=== PATIENT | female | born 1955 | race Caucasian/White ===

== ENCOUNTER 2017-04-06 12:25 | Emergency (ER) | payer BC ==
[2017-04-06 12:40] VITALS: BP 180/64
[2017-04-06] MEDS ORDERED: Ondansetron 4 MG/2 ML SDV IVPUSH ONE (13:04)
[2017-04-06] MEDS ORDERED: Sodium Chloride 0.9% 10 ML Syringe FLUSH PRN (13:04)
[2017-04-06] MEDS ORDERED: HYDROmorphone 1 MG/ML Syringe IVPUSH ONE (13:04)
--- NOTE | 2017-04-06 13:24 | EDM.PDOC ---
ED HPI GENERAL MEDICAL PROBLEM - General Chief Complaint: Abdominal Pain Stated Complaint: ABDOMINAL PAIN ON LEFT SIDE Time Seen by Provider: 04/06/17 12:41 Source of Information: Reports: Patient, RN Notes Reviewed - History of Present Illness INITIAL COMMENTS - FREE TEXT/NARRATIVE: 61-year-old female comes in with severe left lower quad abdominal and pelvic discomfort. she had onset of this pain about 4-5 hours ago this past morning. She had no unusual symptoms yesterday or last evening. She does feel voiding urgency but no major dysuria hematuria or other unusual symptoms. She has had nausea and some dry heaves with this. The pain is very colicky and does vary in intensity but at this time very severe. The pain has not been radiating to her back. No diarrhea with this. No fever or chills. She does have history of prior hysterectomy. 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: Reports: Acetaminophen Other 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: 2000mg of tylenol today Left Lower Abdomen Pain Score (Numeric/FACES): 10 - Related Data Allergies Allergy/AdvReac Type Severity Reaction Status Date / Time gabapentin Allergy Dizziness Verified 04/06/17 12:50 iodine Allergy Airway Verified 04/06/17 12:50 Tightness montelukast [From Singulair] Allergy Hives Verified 04/06/17 12:50 NSAIDS (Non-Steroidal Allergy Airway Verified 04/06/17 12:48 Anti-Inflamma Tightness Penicillins Allergy Hives Verified 04/06/17 12:47 Sulfa (Sulfonamide Allergy Hives Verified 04/06/17 12:47 Antibiotics) Home Meds: Home Meds diphenhydrAMINE [Benadryl] 50 mg PO QID 04/06/17 [History] 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: Other OB/BYN History: x 2 - Past Surgical History Female Surgical History: Reports: Hysterectomy Social & Family History - Tobacco Use Smoking Status *Q: Current Every Day Smoker Years of Tobacco use: 40 Packs/Tins Daily: 0.5 Second Hand Smoke Exposure: No - Caffeine Use Caffeine Use: Reports: None - Recreational Drug Use Recreational Drug Use: No ED ROS GENERAL - Review of Systems Review Of Systems: See Below Constitutional: Denies: Fever, Chills, Diaphoresis HEENT: Reports: No Symptoms Respiratory: Denies: Shortness of Breath, Pleuritic Chest Pain Cardiovascular: Denies: Chest Pain GI/Abdominal: Reports: Abdominal Pain, Nausea, Vomiting. Denies: Diarrhea, Hematochezia, Melena : Reports: Flank Pain, Urgency Musculoskeletal: Denies: Back Pain, Joint Pain Skin: Reports: No Symptoms Neurological: Reports: No Symptoms ED EXAM, RENAL/ - Physical Exam Exam: See Below General Appearance: Alert, Severe Distress Eye Exam: Bilateral Eye: PERRL Throat/Mouth: Normal Inspection Head: Atraumatic Neck: Supple, Full Range of Motion Respiratory/Chest: No Respiratory Distress, Lungs Clear, Normal Breath Sounds Cardiovascular: Regular Rate, Rhythm GI/Abdominal: Tender (Mild tenderness left lower quadrant, left pelvis). No: Guarding, Rebound Back Exam: No: CVA Tenderness (L), CVA Tenderness (R) Neurological: Alert, Oriented, No Motor/Sensory Deficits Skin Exam: Warm, Dry, Normal Color, No Rash Course - Vital Signs Last Recorded V/S: Last Vital Signs Temp 97.5 F 04/06/17 12:38 Pulse 71 04/06/17 12:38 Resp 20 04/06/17 12:38 BP 180/64 H 04/06/17 12:38 Pulse Ox 100 04/06/17 12:38 - Orders/Labs/Meds Orders: Active Orders 24 hr Category Date Time Status Peripheral IV Care [RC] . DIRECTED Care 04/06/17 13:04 Active Sodium Chloride 0.9% [Normal Saline] 1,000 ml Med 04/06/17 13:30 Active IV ONETIME Sodium Chloride 0.9% [Saline Flush] Med 04/06/17 13:04 Active 10 ml FLUSH ASDIRECTED PRN Peripheral IV Insertion Adult [OM.PC] Stat Oth 04/06/17 13:04 Ordered Medication Orders Sodium Chloride (Normal Saline) 1,000 mls @ 999 mls/hr IV ONETIME ALAN Last Admin: 04/06/17 13:41 Dose: 999 mls/hr Sodium Chloride (Saline Flush) 10 ml FLUSH ASDIRECTED PRN PRN Reason: Keep Vein Open Last Admin: 04/06/17 13:38 Dose: 10 ml Labs: Laboratory Tests 04/06/17 04/06/17 04/06/17 Range/Units 13:00 13:08 13:08 WBC 10.94 H (3.98-10.04) K/mm3 RBC 5.48 H (3.98-5.22) M/mm3 Hgb 15.0 (11.2-15.7) gm/L Hct 44.5 (34.1-44.9) % MCV 81.2 (79.4-94.8) fl MCH 27.4 (25.6-32.2) pg MCHC 33.7 (32.2-35.5) g/dl RDW Std Deviation 39.5 (36.4-46.3) fL Plt Count 261 (182-369) K/mm3 MPV 8.7 L (9.4-12.3) fl Neut % (Auto) 88.6 H (34.0-71.1) % Lymph % (Auto) 8.3 L (19.3-51.7) % [place] % (Auto) 2.4 L (4.7-12.5) % Eos % (Auto) 0.5 L (0.7-5.8) Baso % (Auto) 0.0 L (0.1-1.2) % Neut # (Auto) 9.69 H (1.56-6.13) K/mm3 Lymph # (Auto) 0.91 L (1.18-3.74) K/mm3 [place] # (Auto) 0.26 (0.24-0.36) K/mm3 Eos # (Auto) 0.06 (0.04-0.36) K/mm3 Baso # (Auto) 0.00 L (0.01-0.08) K/mm3 Manual Slide Review Normal smear Sodium (136-145) mEq/L Potassium (3.5-5.1) mEq/L Chloride (98-107) mEq/L Carbon Dioxide (21-32) mEq/L Anion Gap (5-15) BUN (7-18) mg/dL Creatinine (0.55-1.02) mg/dL Est Cr Clr Drug Dosing mL/min Estimated GFR (MDRD) (>60) mL/min BUN/Creatinine Ratio (14-18) Glucose (80-115) mg/dL Calcium (8.5-10.1) mg/dL Total Bilirubin (0.2-1.0) mg/dL AST (15-37) U/L ALT (14-59) U/L Alkaline Phosphatase (46-116) U/L C-Reactive Protein 1.5 H* (<1.0) mg/dL Total Protein (6.4-8.2) g/dl Albumin (3.4-5.0) g/dl Globulin gm/dL Albumin/Globulin Ratio (1-2) Urine Color Yellow (Yellow) Urine Appearance Clear (Clear) Urine pH 6.0 (5.0-8.0) Ur Specific [place] > or = 1.030 (1.005-1.030) Urine Protein 1+ H (Negative) Urine Glucose (UA) Negative (Negative) Urine Ketones Negative (Negative) Urine Occult Blood 2+ H (Negative) Urine Nitrite Negative (Negative) Urine Bilirubin Negative (Negative) Urine Urobilinogen 0.2 (0.2-1.0) Ur Leukocyte Esterase Negative (Negative) Urine RBC 0-5 (0-5) /hpf Urine WBC 0-5 (0-5) /hpf Ur Epithelial Cells 0-5 (0-5) /hpf Urine Bacteria Not seen (FEW) /hpf Urine Mucus Not seen (FEW) /hpf 04/06/17 Range/Units 13:08 WBC (3.98-10.04) K/mm3 RBC (3.98-5.22) M/mm3 Hgb (11.2-15.7) gm/L Hct (34.1-44.9) % MCV (79.4-94.8) fl MCH (25.6-32.2) pg MCHC (32.2-35.5) g/dl RDW Std Deviation (36.4-46.3) fL Plt Count (182-369) K/mm3 MPV (9.4-12.3) fl Neut % (Auto) (34.0-71.1) % Lymph % (Auto) (19.3-51.7) % [place] % (Auto) (4.7-12.5) % Eos % (Auto) (0.7-5.8) Baso % (Auto) (0.1-1.2) % Neut # (Auto) (1.56-6.13) K/mm3 Lymph # (Auto) (1.18-3.74) K/mm3 [place] # (Auto) (0.24-0.36) K/mm3 Eos # (Auto) (0.04-0.36) K/mm3 Baso # (Auto) (0.01-0.08) K/mm3 Manual Slide Review Sodium 139 (136-145) mEq/L Potassium 4.3 (3.5-5.1) mEq/L Chloride 104 (98-107) mEq/L Carbon Dioxide 24 (21-32) mEq/L Anion Gap 15.3 H (5-15) BUN 12 (7-18) mg/dL Creatinine 0.7 (0.55-1.02) mg/dL Est Cr Clr Drug Dosing 68.05 mL/min Estimated GFR (MDRD) > 60 (>60) mL/min BUN/Creatinine Ratio 17.1 (14-18) Glucose 138 H (80-115) mg/dL Calcium 9.4 (8.5-10.1) mg/dL Total Bilirubin 0.7 (0.2-1.0) mg/dL AST 13 L (15-37) U/L ALT 29 (14-59) U/L Alkaline Phosphatase 102 (46-116) U/L C-Reactive Protein (<1.0) mg/dL Total Protein 7.6 (6.4-8.2) g/dl Albumin 4.4 (3.4-5.0) g/dl Globulin 3.2 gm/dL Albumin/Globulin Ratio 1.4 (1-2) Urine Color (Yellow) Urine Appearance (Clear) Urine pH (5.0-8.0) Ur Specific [place] (1.005-1.030) Urine Protein (Negative) Urine Glucose (UA) (Negative) Urine Ketones (Negative) Urine Occult Blood (Negative) Urine Nitrite (Negative) Urine Bilirubin (Negative) Urine Urobilinogen (0.2-1.0) Ur Leukocyte Esterase (Negative) Urine RBC (0-5) /hpf Urine WBC (0-5) /hpf Ur Epithelial Cells (0-5) /hpf Urine Bacteria (FEW) /hpf Urine Mucus (FEW) /hpf Meds: Medications Generic Name Dose Route Start Last Admin Trade Name Freq PRN Reason Stop Dose Admin Sodium Chloride 1,000 mls @ 999 mls/hr 04/06/17 13:30 04/06/17 13:41 Normal Saline IV 999 mls/hr ONETIME ALAN Administration Sodium Chloride 10 ml 04/06/17 13:04 04/06/17 13:38 Saline Flush FLUSH 10 ml ASDIRECTED PRN Administration Keep Vein Open Discontinued Medications Generic Name Dose Route Start Last Admin Trade Name Yaritza PRN Reason Stop Dose Admin Hydromorphone HCl 1 mg 04/06/17 13:04 04/06/17 13:38 Dilaudid IVPUSH 04/06/17 13:05 1 mg ONETIME ONE Administration Ondansetron HCl 4 mg 04/06/17 13:04 04/06/17 13:35 Zofran IVPUSH 04/06/17 13:05 4 mg ONETIME ONE Administration - Re-Assessments/Exams Free Text/Narrative Re-Assessment/Exam: 04/06/17 15:21. Patient does have a 1.5 mm stone distal left ureter, see radiology report for details. She had good relief of discomfort after 0.5 mg Dilaudid IV. The stone is small enough it is expected that she should be able to pass that without difficulty. Discharge instructions as documented Departure - Departure Time of Disposition: 15:22 Disposition: Home, Self-Care 01 Condition: fair Clinical Impression: Kidney stone on left side - Discharge Information Forms: ED Department Discharge Additional Instructions: You have been given sedative medication will here in the ED so do not drive the remainder of today, strain urine and to watch for stone. Tylenol or ibuprofen for mild to moderate discomfort or hydrocodone if needed for more severe pain. Do not drive or work when taking hydrocodone. Followup clinic in 3-4 days if you have not passed the stone within 2-3 days as expected. Return to ED as needed - My Orders Last 24 Hours: My Active Orders 04/06/17 13:04 Peripheral IV Care [RC] . DIRECTED Sodium Chloride 0.9% [Saline Flush] 10 ml FLUSH ASDIRECTED PRN Peripheral IV Insertion Adult [OM.PC] Stat 04/06/17 13:30 Sodium Chloride 0.9% [Normal Saline] 1,000 ml IV ONETIME - Assessment/Plan Last 24 Hours: My Active Orders 04/06/17 13:04 Peripheral IV Care [RC] . DIRECTED Sodium Chloride 0.9% [Saline Flush] 10 ml FLUSH ASDIRECTED PRN Peripheral IV Insertion Adult [OM.PC] Stat 04/06/17 13:30 Sodium Chloride 0.9% [Normal Saline] 1,000 ml IV ONETIME
[2017-04-06] MEDS ORDERED: Sodium Chloride 0.9% 1,000 ML IV SCH (13:30)
--- NOTE | 2017-04-06 15:09 | CT ---
CT abdomen and pelvis Technique: Multiple axial sections were obtained from above the dome of the diaphragm inferiorly through the pubic symphysis. Intravenous and oral contrast not utilized. Study was performed as a ureteral stone protocol. Findings: Minimal nonobstructing stone is noted within the right kidney measuring approximately 1-1.5 mm. Left kidney shows a slightly prominent proximal left ureter. There is a minimal 1.5 mm calcification which may be vascular although this could be within the ureter as a ureteral dilatation does not continue past this area with normal-sized distal ureter be in seen. No additional ureteral calcifications are seen. Visualized lung bases shows nothing acute. Noncontrast appearance of the liver appears within normal limits. Small hiatal hernia is seen. Spleen appears normal. Adrenal glands show no nodule. Pancreas has a normal noncontrast appearance. Several small areas of increased density are seen within the gallbladder most likely representing minimal calcified gallstones. Aorta shows atherosclerotic change without aneurysmal dilatation. No retroperitoneal adenopathy or mesenteric abnormalities are seen. No pelvic mass or adenopathy is seen. No bowel dilatation is seen. No free fluid is seen. Bone window settings were reviewed which shows degenerative change at L4-L5 within the apophyseal joints causing mild spondylolisthesis. Disc space narrowing is noted vacuum phenomena at L4-L5. 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 Less prominent degenerative change also seen within other portions of the spine. Impression: 1. Slightly prominent proximal left ureter. Within the pelvis there is changing of the left ureteral caliber to normal. Minimal calcification is seen in this area which could be vascular although given the change in ureteral size this calcification may represent a minimal 1.5 mm ureteral stone. Please correlate if patient has symptoms of left ureteral obstruction. 2. Small 1-1.5 mm nonobstructing stone within the right kidney. 3. Other incidental findings as described above. Diagnostic code #3
== END 2017-04-06 15:30 | disposition home or self-care (01) ==
LOC: JD.ED 12:25
DX: N20.2 Calculus of kidney with calculus of ureter (principal); F17.210 Nicotine dependence, cigarettes, uncomplicated; Z88.0 Allergy status to penicillin; Z88.2 Allergy status to sulfonamides; Z88.8 Allergy status to other drugs, medicaments and biological substances; Z90.710 Acquired absence of both cervix and uterus
CPT/HCPCS: 36415; 74176; 80053; 81001; 85025; 86140; 96361; 96374; 96375; 99284; J1170; J2405; J7040; J7050

== ENCOUNTER 2017-09-28 00:18 | Emergency (ER) | payer BC ==
[2017-09-28] MEDS ORDERED: HYDROmorphone 1 MG/ML Syringe IVPUSH ONE (00:33)
[2017-09-28] MEDS ORDERED: Ondansetron 4 MG/2 ML SDV IVPUSH ONE ×2 (00:34→02:34)
[2017-09-28] MEDS ORDERED: Ketorolac 30 MG/ML SDV IVPUSH ONE (00:34)
[2017-09-28] MEDS ORDERED: Sodium Chloride 0.9% 1,000 ML IV SCH (00:45)
--- NOTE | 2017-09-28 00:51 | EDM.PDOC ---
ED HPI GENERAL MEDICAL PROBLEM - General Chief Complaint: Flank Pain Stated Complaint: POSS KIDNEY STONE Time Seen by Provider: 09/28/17 00:20 Source of Information: Reports: Patient History Limitations: Reports: No Limitations - History of Present Illness INITIAL COMMENTS - FREE TEXT/NARRATIVE: This is a 61-year-old female. Onset tonight around 10 PM with right lower quadrant abdominal pain radiating into her groin and down her right thigh and she's had 3 kidney stones in the past and that is what she believes she has now. She has been having some nausea and gagging but no vomiting. She has not noted any blood in her urine this evening. She's had no fever no chills no other acute symptoms. When I walk into the room she standing leaning over arms on the bed and sweating. Right Flank Pain Score (Numeric/FACES): 10 - Related Data Allergies Allergy/AdvReac Type Severity Reaction Status Date / Time gabapentin Allergy Dizziness Verified 09/28/17 00:27 iodine Allergy Airway Verified 09/28/17 00:27 Tightness montelukast [From Singulair] Allergy Hives Verified 09/28/17 00:27 NSAIDS (Non-Steroidal Allergy Airway Verified 09/28/17 00:27 Anti-Inflamma Tightness Penicillins Allergy Hives Verified 09/28/17 00:27 Sulfa (Sulfonamide Allergy Hives Verified 09/28/17 00:27 Antibiotics) Home Meds: Home Meds Acetaminophen/oxyCODONE [Percocet 325-5 MG] 1 tab PO Q4H PRN #15 tablet [Rx] Ondansetron [Zofran] 4 mg PO Q6H PRN #12 tab 09/28/17 [Rx] Past Medical History 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: Other OB/BYN History: x 2 Endocrine/Metabolic History: Reports: Diabetes, Type II - Past Surgical History Female Surgical History: Reports: Hysterectomy Social & Family History - Tobacco Use Smoking Status *Q: Current Every Day Smoker Years of Tobacco use: 40 Packs/Tins Daily: 0.5 Second Hand Smoke Exposure: No - Caffeine Use Caffeine Use: Reports: Coffee - Recreational Drug Use Recreational Drug Use: No ED ROS GENERAL - Review of Systems Review Of Systems: See Below Constitutional: Denies: Fever, Chills HEENT: Reports: No Symptoms Respiratory: Reports: No Symptoms Cardiovascular: Reports: No Symptoms Endocrine: Reports: No Symptoms GI/Abdominal: Reports: Abdominal Pain, Nausea. Denies: Vomiting : Reports: Flank Pain Musculoskeletal: Reports: No Symptoms Skin: Reports: No Symptoms Neurological: Reports: No Symptoms Psychiatric: Reports: No Symptoms Hematologic/Lymphatic: Reports: No Symptoms ED EXAM, RENAL/ - Physical Exam Exam: See Below Exam Limited By: No Limitations General Appearance: Alert, WD/WN, Moderate Distress Eye Exam: Bilateral Eye: Normal Inspection Ears: Normal External Exam Nose: Normal Inspection Throat/Mouth: Normal Inspection, Normal Lips, Normal Voice, No Airway Compromise Head: Normocephalic Neck: Supple Respiratory/Chest: No Respiratory Distress, Lungs Clear, Normal Breath Sounds Cardiovascular: Regular Rate, Rhythm, No Murmur GI/Abdominal: Soft, Other (Generalized right flank soreness and to the right lower quadrant but no masses no rebound noted, no rigidity) Back Exam: Full Range of Motion Extremities: Normal Inspection, Normal Range of Motion, No Pedal Edema Neurological: Alert, Oriented Psychiatric: Anxious Skin Exam: Warm, Diaphoretic Course - Vital Signs Last Recorded V/S: Last Vital Signs Temp 97.2 F 09/28/17 00:24 Pulse 76 09/28/17 00:24 Resp 16 09/28/17 00:24 BP 177/64 H 09/28/17 01:09 Pulse Ox 96 09/28/17 00:24 - Orders/Labs/Meds Orders: Active Orders 24 hr Category Date Time Status Abdomen Pelvis wo Cont [CT] Stat Exams 09/28/17 01:07 Taken Sodium Chloride 0.9% [Normal Saline] 1,000 ml Med 09/28/17 00:45 Active IV ASDIRECTED Medication Orders Sodium Chloride (Normal Saline) 1,000 mls @ 1,000 mls/hr IV ASDIRECTED ALAN Last Admin: 09/28/17 00:50 Dose: 1,000 mls/hr Labs: Laboratory Tests 09/28/17 09/28/17 09/28/17 Range/Units 00:40 00:40 01:58 WBC 11.36 H (3.98-10.04) K/mm3 RBC 5.55 H (3.98-5.22) M/mm3 Hgb 15.2 (11.2-15.7) gm/L Hct 45.2 H (34.1-44.9) % MCV 81.4 (79.4-94.8) fl MCH 27.4 (25.6-32.2) pg MCHC 33.6 (32.2-35.5) g/dl RDW Std Deviation 40.2 (36.4-46.3) fL Plt Count 254 (182-369) K/mm3 MPV 8.8 L (9.4-12.3) fl Neut % (Auto) 77.8 H (34.0-71.1) % Lymph % (Auto) 13.6 L (19.3-51.7) % [place] % (Auto) 5.2 (4.7-12.5) % Eos % (Auto) 3.0 (0.7-5.8) Baso % (Auto) 0.1 (0.1-1.2) % Neut # (Auto) 8.84 H (1.56-6.13) K/mm3 Lymph # (Auto) 1.55 (1.18-3.74) K/mm3 [place] # (Auto) 0.59 H (0.24-0.36) K/mm3 Eos # (Auto) 0.34 (0.04-0.36) K/mm3 Baso # (Auto) 0.01 (0.01-0.08) K/mm3 Sodium 142 (136-145) mEq/L Potassium 4.1 (3.5-5.1) mEq/L Chloride 104 (98-107) mEq/L Carbon Dioxide 24 (21-32) mEq/L Anion Gap 18.1 H (5-15) BUN 15 (7-18) mg/dL Creatinine 0.8 (0.55-1.02) mg/dL Est Cr Clr Drug Dosing 59.54 mL/min Estimated GFR (MDRD) > 60 (>60) mL/min BUN/Creatinine Ratio 18.8 H (14-18) Glucose 191 H (80-115) mg/dL Calcium 9.3 (8.5-10.1) mg/dL Total Bilirubin 0.4 (0.2-1.0) mg/dL AST 18 (15-37) U/L ALT 77 H (14-59) U/L Alkaline Phosphatase 131 H (46-116) U/L Total Protein 7.7 (6.4-8.2) g/dl Albumin 4.4 (3.4-5.0) g/dl Globulin 3.3 gm/dL Albumin/Globulin Ratio 1.3 (1-2) Urine Color Yellow (Yellow) Urine Appearance Clear (Clear) Urine pH 6.5 (5.0-8.0) Ur Specific [place] > or = 1.030 (1.005-1.030) Urine Protein 1+ H (Negative) Urine Glucose (UA) Negative (Negative) Urine Ketones Negative (Negative) Urine Occult Blood 3+ H (Negative) Urine Nitrite Negative (Negative) Urine Bilirubin Negative (Negative) Urine Urobilinogen 0.2 (0.2-1.0) Ur Leukocyte Esterase Trace H (Negative) Urine RBC 20-30 H (0-5) /hpf Urine WBC 5-10 H (0-5) /hpf Ur Epithelial Cells Not Reportable Ur Squamous Epith Cells 0-5 (0-5) /hpf Urine Bacteria Not seen (FEW) /hpf Urine Mucus Not seen (FEW) /hpf Meds: Medications Generic Name Dose Route Start Last Admin Trade Name Freq PRN Reason Stop Dose Admin Sodium Chloride 1,000 mls @ 1,000 mls/hr 09/28/17 00:45 09/28/17 00:50 Normal Saline IV 1,000 mls/hr ASDIRECTED ALAN Administration Discontinued Medications Generic Name Dose Route Start Last Admin Trade Name Freq PRN Reason Stop Dose Admin Hydromorphone HCl 0.5 mg 09/28/17 00:33 09/28/17 00:51 Dilaudid IVPUSH 09/28/17 00:34 0.5 mg ONETIME ONE Administration Hydromorphone HCl 0.5 mg 09/28/17 01:01 09/28/17 01:07 Dilaudid IVPUSH 09/28/17 01:02 0.5 mg ONETIME ONE Administration Hydromorphone HCl 0.5 mg 09/28/17 02:02 09/28/17 02:12 Dilaudid IVPUSH 09/28/17 02:03 0.5 mg ONETIME ONE Administration Hydromorphone HCl 0.5 mg 09/28/17 02:34 09/28/17 02:44 Dilaudid IVPUSH 09/28/17 02:35 0.5 mg ONETIME ONE Administration Sodium Chloride 1,000 mls @ 999 mls/hr 09/28/17 02:07 09/28/17 02:12 Normal Saline IV 09/28/17 03:07 999 mls/hr ONETIME ONE Administration Ondansetron HCl 4 mg 09/28/17 00:34 09/28/17 00:51 Zofran IVPUSH 09/28/17 00:35 4 mg ONETIME ONE Administration Ondansetron HCl 4 mg 09/28/17 02:34 09/28/17 02:44 Zofran IVPUSH 09/28/17 02:35 4 mg ONETIME ONE Administration - Radiology Interpretation Free Text/Narrative:: CT of the abdomen shows a 2 mm stone in the distal right ureter with mild right- sided hydronephrosis. Incidental finding is gallstones otherwise everything appears to be normal - Re-Assessments/Exams Free Text/Narrative Re-Assessment/Exam: 09/28/17 02:35 I spoke to the patient regarding her CT scan results. She is still having some mild pain and nausea we will continue another liter of fluids with pain medications to ease her up and hopefully be able to get her home. 09/28/17 03:19 The patient is doing better. However she has episodes of cramping in that right lower quadrant. I'm going to give her one final dose of pain medication and let her go home with prescription for something for pain and nausea. She is to follow-up with her doctor this week for recheck especially if she has not passed the stone. Departure - Departure Time of Disposition: 03:20 Disposition: Home, Self-Care 01 Condition: Fair Clinical Impression: Nephrolithiasis, Ureteral stone with hydronephrosis, Renal colic on right side - Discharge Information Prescriptions: Acetaminophen/oxyCODONE [Percocet 325-5 MG] 1 tab PO Q4H PRN #15 tablet PRN Reason: Pain Ondansetron [Zofran] 4 mg PO Q6H PRN #12 tab PRN Reason: Nausea Instructions: Kidney Stones, [id number] Referrals: PCP,Not In Area [Primary Care Provider] - Forms: ED Department Discharge Additional Instructions: Continue to drink lots of fluids, strain your urine every time you urinate a few see a dark little spot on the screen and you rub it with her finger and it feels like a pebble that is your stone, take the medication for pain and nausea as needed, avoid any excessive activity or traveling until you pass the stone, follow-up with your family doctor or doctor of choice this week especially if you do not pass the stone, return to the ER if needed - My Orders Last 24 Hours: My Active Orders 09/28/17 00:45 Sodium Chloride 0.9% [Normal Saline] 1,000 ml IV ASDIRECTED 09/28/17 01:07 Abdomen Pelvis wo Cont [CT] Stat - Assessment/Plan Last 24 Hours: My Active Orders 09/28/17 00:45 Sodium Chloride 0.9% [Normal Saline] 1,000 ml IV ASDIRECTED 09/28/17 01:07 Abdomen Pelvis wo Cont [CT] Stat
[2017-09-28] MEDS ORDERED: HYDROmorphone 0.5 MG/0.5 ML Syringe IVPUSH ONE ×4 (01:01→03:24)
[2017-09-28 01:10] VITALS: BP 177/64
[2017-09-28] MEDS ORDERED: Sodium Chloride 0.9% 1,000 ML IV ONE (02:07)
--- NOTE | 2017-09-30 07:39 | CT ---
CT abdomen and pelvis Technique: Multiple axial sections were obtained from above the dome of the diaphragm inferiorly through the pubic symphysis. Intravenous and oral contrast was not utilized. Study has been performed as a ureteral stone protocol. Comparison: Previous noncontrast CT study performed as a ureteral stone protocol dated 04/06/17. Findings: Small obstructing stone is identified within the distal right ureter close to the UVJ. This stone measures approximately 2.3 mm. This obstruction causes inflammatory change around the more proximal right ureter. Several nonobstructing small calculi are seen within the right kidney. Right ureter and right pelvicalyceal system are dilated. Small portion of the visualized lung bases show nothing acute. Incidental note of minimal peripheral fibrosis within the right middle lobe. Liver shows no focal parenchymal abnormality. Several small calcifications within the gallbladder are seen compatible with gallstones. Spleen appears within normal limits. Adrenal glands show no nodule. Pancreas appears within normal limits. Small hiatal hernia is seen. Diffuse atherosclerotic calcification is noted within the aorta. No retroperitoneal adenopathy is seen. Several mesenteric lymph nodes are noted within the right lower abdomen which are believed to be incidental. Appendix is not definitely seen. No pelvic abnormality is appreciated. Bone window settings were reviewed which show scattered degenerative change within the spine. Most prominent finding is degenerative apophyseal change causing spondylolisthesis at L5-S1. Impression: 1. Inflammatory change around portions of the proximal right ureter as well as right sided hydronephrosis. These findings are caused by an obstructing 2.3 mm calculus within the distal right ureter and close to the UVJ. 2. Several nonobstructing small calculi within the right kidney are seen. 3. Other findings which are felt to be incidental as described above. Diagnostic code #3 I agree with preliminary report issued by [facility] ([facility] report finalized on 09/28/17, 3:10 AM Central Time)
== END 2017-09-28 03:40 | disposition home or self-care (01) ==
LOC: JD.ED 00:18
DX: N13.2 Hydronephrosis with renal and ureteral calculous obstruction (principal); E11.9 Type 2 diabetes mellitus without complications; F17.210 Nicotine dependence, cigarettes, uncomplicated; Z88.0 Allergy status to penicillin; Z88.8 Allergy status to other drugs, medicaments and biological substances; Z88.2 Allergy status to sulfonamides
CPT/HCPCS: 36415; 74176; 80053; 81001; 85025; 96361; 96374; 96375; 96376; 99284; J1170; J2405; J7040

== ENCOUNTER 2018-03-18 19:36 | Emergency (ER) | payer BC ==
[2018-03-18 19:44] VITALS: BP 179/133
--- NOTE | 2018-03-18 20:07 | EDM.PDOC ---
ED HPI GENERAL MEDICAL PROBLEM - General Chief Complaint: Abdominal Pain Stated Complaint: BACK AND STOMACH PAIN Time Seen by Provider: 03/18/18 19:51 Source of Information: Reports: Patient History Limitations: Reports: No Limitations - History of Present Illness INITIAL COMMENTS - FREE TEXT/NARRATIVE: The patient presents with left flank pain and urinary symptoms. She says this all started about 3pm today. She had kidney stones in the past but she says this feels a little different. It is a little higher and more to the front. The pain will also radiate to the front. She has nausea but no vomiting. She has no fever or chills. She denies chest pain and she is not short of breath. She does have dysuria and frequency of urination. She did not notice any blood. The pain comes and goes and it is better now. Onset: Sudden Duration: Hour(s): (3pm) Location: Reports: Back (Left flank) Quality: Reports: Sharp Severity: Moderate Improves with: Reports: None Worsens with: Reports: None Associated Symptoms: Reports: Nausea/Vomiting. Denies: Chest Pain, Cough, Fever /Chills, Headaches, Shortness of Breath Left Abdomen Pain Score (Numeric/FACES): 6 - Related Data Allergies Allergy/AdvReac Type Severity Reaction Status Date / Time gabapentin Allergy Dizziness Verified 09/28/17 00:27 ibuprofen Allergy Hives Verified 03/18/18 19:40 iodine Allergy Airway Verified 09/28/17 00:27 Tightness montelukast [From Singulair] Allergy Hives Verified 09/28/17 00:27 naproxen [From Aleve] Allergy Hives Verified 03/18/18 19:40 NSAIDS (Non-Steroidal Allergy Airway Verified 09/28/17 00:27 Anti-Inflamma Tightness Penicillins Allergy Hives Verified 09/28/17 00:27 Sulfa (Sulfonamide Allergy Hives Verified 09/28/17 00:27 Antibiotics) Home Meds: Home Meds Hydrocodone/Acetaminophen [Hydrocodon-Acetaminophen 5-325] 1 - 2 each PO Q6HR PRN #20 tablet 03/18/18 [Rx] Tamsulosin HCl [Flomax] 0.4 mg PO DAILY #7 cap.er.24h 03/18/18 [Rx] Past Medical History HEENT History: Reports: Cataract Cardiovascular History: Reports: Hypertension Genitourinary History: Reports: Renal Calculus 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 Endocrine/Metabolic History: Reports: Diabetes, Type II - Past Surgical History Female Surgical History: Reports: Hysterectomy Social & Family History - Tobacco Use Smoking Status *Q: Current Every Day Smoker Years of Tobacco use: 30 Packs/Tins Daily: 0.2 Second Hand Smoke Exposure: No - Caffeine Use Caffeine Use: Reports: Coffee - Recreational Drug Use Recreational Drug Use: No ED ROS GENERAL - Review of Systems Review Of Systems: See Below Constitutional: Reports: No Symptoms HEENT: Reports: No Symptoms Respiratory: Reports: No Symptoms Cardiovascular: Reports: No Symptoms Endocrine: Reports: No Symptoms GI/Abdominal: Reports: Abdominal Pain, Nausea. Denies: Vomiting : Reports: Dysuria, Flank Pain (Left), Frequency Musculoskeletal: Reports: No Symptoms Skin: Reports: No Symptoms ED EXAM, RENAL/ - Physical Exam Exam: See Below Exam Limited By: No Limitations General Appearance: Alert, No Apparent Distress Ears: Normal External Exam Nose: Normal Inspection Throat/Mouth: Normal Inspection Head: Atraumatic, Normocephalic Neck: Normal Inspection Respiratory/Chest: No Respiratory Distress, Lungs Clear, Normal Breath Sounds Cardiovascular: Regular Rate, Rhythm, No Edema, No Murmur GI/Abdominal: Soft, Non-Tender, No Organomegaly, No Mass Back Exam: Normal Inspection, Other (No rash noted) Extremities: Normal Inspection Course - Vital Signs Last Recorded V/S: Last Vital Signs Temp 98.1 F 03/18/18 19:41 Pulse 86 03/18/18 19:41 Resp 18 03/18/18 19:41 BP 179/133 H 03/18/18 19:41 Pulse Ox 98 03/18/18 19:41 - Orders/Labs/Meds Orders: Active Orders 24 hr Category Date Time Status Peripheral IV Care [RC] . DIRECTED Care 03/18/18 20:01 Active Abdomen Pelvis wo Cont [CT] Stat Exams 03/18/18 20:00 Taken UA W/MICROSCOPIC [URIN] Stat Lab 03/18/18 20:15 Ordered Sodium Chloride 0.9% [Saline Flush] Med 03/18/18 20:00 Active 10 ml FLUSH ASDIRECTED PRN Peripheral IV Insertion Adult [OM.PC] Stat Oth 03/18/18 20:00 Ordered Medication Orders Sodium Chloride (Saline Flush) 10 ml FLUSH ASDIRECTED PRN PRN Reason: Keep Vein Open Last Admin: 03/18/18 20:17 Dose: 10 ml Admin: 03/18/18 20:10 Dose: 10 ml Labs: Laboratory Tests 03/18/18 03/18/18 03/18/18 Range/Units 19:46 19:46 20:15 WBC 8.21 (3.98-10.04) K/mm3 RBC 5.32 H (3.98-5.22) M/mm3 Hgb 14.9 (11.2-15.7) gm/L Hct 44.0 (34.1-44.9) % MCV 82.7 (79.4-94.8) fl MCH 28.0 (25.6-32.2) pg MCHC 33.9 (32.2-35.5) g/dl RDW Std Deviation 39.7 (36.4-46.3) fL Plt Count 248 (182-369) K/mm3 MPV 8.6 L (9.4-12.3) fl Neut % (Auto) 72.1 H (34.0-71.1) % Lymph % (Auto) 18.9 L (19.3-51.7) % [place] % (Auto) 5.8 (4.7-12.5) % Eos % (Auto) 2.9 (0.7-5.8) Baso % (Auto) 0.1 (0.1-1.2) % Neut # (Auto) 5.91 (1.56-6.13) K/mm3 Lymph # (Auto) 1.55 (1.18-3.74) K/mm3 [place] # (Auto) 0.48 H (0.24-0.36) K/mm3 Eos # (Auto) 0.24 (0.04-0.36) K/mm3 Baso # (Auto) 0.01 (0.01-0.08) K/mm3 Sodium 138 (136-145) mEq/L Potassium 3.8 (3.5-5.1) mEq/L Chloride 104 (98-107) mEq/L Carbon Dioxide 27 (21-32) mEq/L Anion Gap 10.8 (5-15) BUN 11 (7-18) mg/dL Creatinine 0.7 (0.55-1.02) mg/dL Est Cr Clr Drug Dosing 67.16 mL/min Estimated GFR (MDRD) > 60 (>60) mL/min BUN/Creatinine Ratio 15.7 (14-18) Glucose 109 (80-115) mg/dL Calcium 9.4 (8.5-10.1) mg/dL Total Bilirubin 0.6 (0.2-1.0) mg/dL AST 20 (15-37) U/L ALT 32 (14-59) U/L Alkaline Phosphatase 98 (46-116) U/L Total Protein 7.5 (6.4-8.2) g/dl Albumin 4.3 (3.4-5.0) g/dl Globulin 3.2 gm/dL Albumin/Globulin Ratio 1.3 (1-2) Lipase 164 (73-393) U/L Urine Color Light yellow (Yellow) Urine Appearance Clear (Clear) Urine pH 7.0 (5.0-8.0) Ur Specific [place] 1.015 (1.005-1.030) Urine Protein Negative (Negative) Urine Glucose (UA) Negative (Negative) Urine Ketones Negative (Negative) Urine Occult Blood 3+ H (Negative) Urine Nitrite Negative (Negative) Urine Bilirubin Negative (Negative) Urine Urobilinogen 0.2 (0.2-1.0) Ur Leukocyte Esterase Trace H (Negative) Urine RBC 5-10 H (0-5) /hpf Urine WBC 0-5 (0-5) /hpf Ur Epithelial Cells 5-10 H (0-5) /hpf Urine Bacteria Few (FEW) /hpf Urine Mucus Not seen (FEW) /hpf Meds: Medications Generic Name Dose Route Start Last Admin Trade Name Freq PRN Reason Stop Dose Admin Sodium Chloride 10 ml 03/18/18 20:00 03/18/18 20:17 Saline Flush FLUSH 10 ml ASDIRECTED PRN Administration Keep Vein Open - Re-Assessments/Exams Free Text/Narrative Re-Assessment/Exam: 03/18/18 20:07 I ordered an IV saline lock, labs, UA and a CT of her abdomen and pelvis without contrast. 03/18/18 21:16 Her CBC and CMP look good. Her lipase is negative. Her UA shows blood and no UTI. Her CT shows an obstructing 1mm calcification at the UVJ. I will get her something for pain and flomax. Departure - Departure Time of Disposition: 21:20 Disposition: Home, Self-Care 01 Condition: Good Clinical Impression: Kidney stone on left side, Renal colic on left side - Discharge Information Prescriptions: Hydrocodone/Acetaminophen [Hydrocodon-Acetaminophen 5-325] 1 - 2 each PO Q6HR PRN #20 tablet PRN Reason: Pain Tamsulosin HCl [Flomax] 0.4 mg PO DAILY #7 cap.er.24h Referrals: PCP,None [Primary Care Provider] - Forms: ED Department Discharge Additional Instructions: Drink plenty of fluids. Take flomax daily until you pass the stone. Take the hydrocodone as needed for pain. Please return if you are worse. - My Orders Last 24 Hours: My Active Orders 03/18/18 20:00 Abdomen Pelvis wo Cont [CT] Stat Sodium Chloride 0.9% [Saline Flush] 10 ml FLUSH ASDIRECTED PRN Peripheral IV Insertion Adult [OM.PC] Stat 03/18/18 20:01 Peripheral IV Care [RC] . DIRECTED 03/18/18 20:15 UA W/MICROSCOPIC [URIN] Stat - Assessment/Plan Last 24 Hours: My Active Orders 03/18/18 20:00 Abdomen Pelvis wo Cont [CT] Stat Sodium Chloride 0.9% [Saline Flush] 10 ml FLUSH ASDIRECTED PRN Peripheral IV Insertion Adult [OM.PC] Stat 03/18/18 20:01 Peripheral IV Care [RC] . DIRECTED 03/18/18 20:15 UA W/MICROSCOPIC [URIN] Stat
[2018-03-18] MEDS: Sodium Chloride 0.9% 10 ML Syringe FLUSH PRN ×2 (20:10→20:17)
[2018-03-18] MEDS ORDERED: HYDROmorphone 0.5 MG/0.5 ML SYRINGE IVPUSH ONE (21:29)
--- NOTE | 2018-03-19 07:37 | CT ---
CT abdomen and pelvis Technique: Multiple axial sections were obtained from above the dome of the diaphragm inferiorly through the pubic symphysis. Intravenous and oral contrast was not utilized. Comparison: Prior noncontrast CT abdomen and pelvis exam of 09/28/17. Left ureter is mildly prominent down to the UVJ. This finding is caused by a small obstructing stone at the UVJ measuring approximately 2.6 mm. No other abnormal calcifications are seen along the course of the ureters. Several small nonobstructing calculi are seen within both kidneys. Visualized lung bases show nothing acute. Noncontrast appearance of the liver and spleen is within normal limits. Several small calcifications are seen within the gallbladder which are noted on prior study and presumably represent minimal gallstones. Pancreas is within normal limits. Aorta shows diffuse atherosclerotic calcification without aneurysm. No retroperitoneal adenopathy or mesenteric abnormalities are seen. No pelvic mass or adenopathy is seen. No free fluid or inflammatory change is appreciated. Appendix is not visualized with certainty. Scattered degenerative change is noted within the spine. Impression: 1. 2.6 mm obstructing stone within the distal left ureter at the UVJ. 2. Minimal nonobstructing calculi within both kidneys. 3. Small nonobstructing calculi are seen within the gallbladder. 4. Other incidental findings. Diagnostic code #3 I agree with preliminary report from [facility], finalized at 03/18/18, 9:45 PM Central Time
== END 2018-03-18 21:34 | disposition home or self-care (01) ==
LOC: JD.ED 19:36
DX: N20.2 Calculus of kidney with calculus of ureter (principal); F17.210 Nicotine dependence, cigarettes, uncomplicated; Z88.8 Allergy status to other drugs, medicaments and biological substances; Z88.6 Allergy status to analgesic agent; Z88.0 Allergy status to penicillin; Z88.2 Allergy status to sulfonamides
CPT/HCPCS: 36415; 74176; 80053; 81001; 83690; 85025; 99284; J7050; 99283

== ENCOUNTER 2021-11-12 20:08 | Emergency (ER) | payer MEDICARE, OTHER ==
[2021-11-12 20:21] VITALS: BP 137/116; PULSE 87
[2021-11-12] MEDS ORDERED: fentaNYL 100 MCG/2 ML SDV IVPUSH ONE (20:33)
[2021-11-12] MEDS ORDERED: Ondansetron 4 MG/2 ML SDV IVPUSH ONE (20:33)
[2021-11-12] MEDS ORDERED: Sodium Chloride 0.9% 1,000 ML IV SCH (20:45)
--- NOTE | 2021-11-12 20:47 | EDM.PDOC ---
ED HPI GENERAL MEDICAL PROBLEM - General Chief Complaint: Flank Pain Stated Complaint: KIDNEY STONE Time Seen by Provider: 11/12/21 20:20 - History of Present Illness INITIAL COMMENTS - FREE TEXT/NARRATIVE: 65-year-old female presents the emergency room with continued kidney stone pain. Patient was seen in the walk-in clinic diagnosed with a kidney stone on the left side she was started on [place] 03/27/2025 1 every 6 hours as needed this is not working. She is also given Macrobid because they found a urinary tract infection. The patient is not doing any better her pain is not well controlled she is not having any fevers or chills. She is having persistent symptoms with absolutely no improvement in fact she feels a little bit worse. Patient's had history of kidney stones in the past. Left Flank Pain Score (Numeric/FACES): 10 - Related Data Allergies Allergy/AdvReac Type Severity Reaction Status Date / Time gabapentin Allergy Dizziness Verified 11/12/21 20:21 ibuprofen Allergy Hives Verified 11/12/21 20:21 iodine Allergy Airway Verified 11/12/21 20:21 Tightness montelukast [From Singulair] Allergy Hives Verified 11/12/21 20:21 naproxen [From Aleve] Allergy Hives Verified 11/12/21 20:21 NSAIDS (Non-Steroidal Allergy Airway Verified 11/12/21 20:21 Anti-Inflamma Tightness Penicillins Allergy Hives Verified 11/12/21 20:21 Sulfa (Sulfonamide Allergy Hives Verified 11/12/21 20:21 Antibiotics) Home Meds: Home Meds Albuterol [Ventolin HFA] 1 dose INH ASDIRECTED 11/12/21 [History] Diltiazem [Tiazac] 1 tab PO ASDIRECTED 11/12/21 [History] Hydrocodone/Acetaminophen [HYDROcodone-Acetaminophen 5-325 MG] 1 tab PO ASDIRECTED 11/12/21 [History] nitrofurantoin macrocrystaL [Nitrofurantoin] 1 tab PO ASDIRECTED 11/12/21 [History] Hydrocodone/Acetaminophen [HYDROcodone-Acetaminophen 5-325 MG] 1 - 2 each PO Q6H PRN #14 tab 11/13/21 [Rx] Ondansetron [Zofran ODT] 4 mg PO Q6H PRN #10 tab.dis 11/13/21 [Rx] Past Medical History HEENT History: Reports: Cataract Cardiovascular History: Reports: High Cholesterol, Hypertension Genitourinary History: Reports: Renal Calculus 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 Endocrine/Metabolic History: Reports: Diabetes, Type II - Past Surgical History Female Surgical History: Reports: Hysterectomy Social & Family History - Tobacco Use Tobacco Use Status *Q: Never Tobacco User Second Hand Smoke Exposure: No - Caffeine Use Caffeine Use: Reports: None - Recreational Drug Use Recreational Drug Use: No ED ROS GENERAL - Review of Systems Review Of Systems: See Below Constitutional: Reports: No Symptoms HEENT: Reports: No Symptoms Respiratory: Reports: No Symptoms Cardiovascular: Reports: No Symptoms Endocrine: Reports: No Symptoms GI/Abdominal: Reports: Abdominal Pain (Kidney stone pain) : Reports: Flank Pain Musculoskeletal: Reports: No Symptoms Neurological: Reports: No Symptoms ED EXAM, GENERAL - Physical Exam Exam: See Below Exam Limited By: No Limitations General Appearance: Alert, No Apparent Distress Head: Atraumatic, Normocephalic Neck: Normal Inspection, Supple, Non-Tender, Full Range of Motion Respiratory/Chest: No Respiratory Distress, Lungs Clear, Normal Breath Sounds Cardiovascular: Regular Rate, Rhythm, No Edema, No Murmur GI/Abdominal: Normal Bowel Sounds, Soft, Tender (She has some tenderness on the left side of her abdomen this is not worsened with palpation. No rigidity rebound or guarding noted) Back Exam: CVA Tenderness (L) Extremities: Normal Inspection, Normal Range of Motion, Non-Tender Neurological: Alert, Oriented, Normal Cognition Course - Vital Signs Last Recorded V/S: Last Vital Signs Temp 36.1 C 11/12/21 20:20 Pulse 87 11/12/21 20:20 Resp 20 11/12/21 20:20 BP 137/116 H 11/12/21 20:20 Pulse Ox 100 11/12/21 20:20 - Orders/Labs/Meds Orders: Active Orders 24 hr Category Date Time Status Abdomen Pelvis wo Cont [CT] Stat Exams 11/12/21 20:53 Taken CULTURE URINE [MREF] Stat Lab 11/12/21 20:45 Received Sodium Chloride 0.9% [Normal Saline] 1,000 ml Med 11/12/21 20:45 Active IV ASDIRECTED Medication Orders Sodium Chloride (Normal Saline) 1,000 mls @ 150 mls/hr IV ASDIRECTED ALAN Last Admin: 11/12/21 20:49 Dose: 150 mls/hr Documented by: KRIS Labs: Laboratory Tests 11/12/21 11/12/21 11/12/21 Range/Units 20:26 20:45 20:48 WBC 13.24 H (3.98-10.04) K/mm3 RBC 5.49 H (3.98-5.22) M/mm3 Hgb 15.3 (11.2-15.7) gm/dl Hct 43.5 (34.1-44.9) % MCV 79.2 L D (79.4-94.8) fl MCH 27.9 (25.6-32.2) pg MCHC 35.2 (32.2-35.5) g/dl RDW Std Deviation 36.9 (36.4-46.3) fL Plt Count 233 (182-369) K/mm3 MPV 8.4 L (9.4-12.3) fl Neutrophils % (Manual) 88 H (40-60) % Band Neutrophils % 0 (0-10) % Lymphocytes % (Manual) 6 L (20-40) % Atypical Lymphs % 0 % Monocytes % (Manual) 6 (2-10) % Eosinophils % (Manual) 0 L (0.7-5.8) % Basophils % (Manual) 0 L (0.1-1.2) Toxic Granulation Few Platelet Estimate Adequate Plt Morphology Comment Normal RBC Morph Comment Normal Sodium (136-145) mEq/L Potassium (3.5-5.1) mEq/L Chloride (98-107) mEq/L Carbon Dioxide (21-32) mEq/L Anion Gap (5-15) BUN (7-18) mg/dL Creatinine (0.55-1.02) mg/dL Est Cr Clr Drug Dosing mL/min Estimated GFR (MDRD) (>60) mL/min BUN/Creatinine Ratio (14-18) Glucose (70-99) mg/dL Calcium (8.5-10.1) mg/dL Total Bilirubin (0.2-1.0) mg/dL AST (15-37) U/L ALT (14-59) U/L Alkaline Phosphatase (46-116) U/L Total Protein (6.4-8.2) g/dl Albumin (3.4-5.0) g/dl Globulin gm/dL Albumin/Globulin Ratio (1-2) Urine Color Yellow (Yellow) Urine Appearance Clear (Clear) Urine pH 7.0 (5.0-8.0) Ur Specific [place] 1.020 (1.005-1.030) Urine Protein Trace H (Negative) Urine Glucose (UA) Trace H (Negative) Urine Ketones 1+ H (Negative) Urine Occult Blood 2+ H (Negative) Urine Nitrite Negative (Negative) Urine Bilirubin Negative (Negative) Urine Urobilinogen 0.2 (0.2-1.0) Ur Leukocyte Esterase Trace H (Negative) Urine RBC 20-30 H (0-5) /hpf Urine WBC 0-5 (0-5) /hpf Urine Bacteria Rare (FEW) /hpf Urine Mucus Not seen (FEW) /hpf Influenza Type A RNA Negative (NEGATIVE) Influenza Type B RNA Negative (NEGATIVE) SARS-CoV-2 RNA ([place]) Negative (NEGATIVE) 11/12/21 Range/Units 20:48 WBC (3.98-10.04) K/mm3 RBC (3.98-5.22) M/mm3 Hgb (11.2-15.7) gm/dl Hct (34.1-44.9) % MCV (79.4-94.8) fl MCH (25.6-32.2) pg MCHC (32.2-35.5) g/dl RDW Std Deviation (36.4-46.3) fL Plt Count (182-369) K/mm3 MPV (9.4-12.3) fl Neutrophils % (Manual) (40-60) % Band Neutrophils % (0-10) % Lymphocytes % (Manual) (20-40) % Atypical Lymphs % % Monocytes % (Manual) (2-10) % Eosinophils % (Manual) (0.7-5.8) % Basophils % (Manual) (0.1-1.2) Toxic Granulation Platelet Estimate Plt Morphology Comment RBC Morph Comment Sodium 136 (136-145) mEq/L Potassium 2.8 L (3.5-5.1) mEq/L Chloride 96 L (98-107) mEq/L Carbon Dioxide 26 (21-32) mEq/L Anion Gap 16.8 H (5-15) BUN 10 (7-18) mg/dL Creatinine 0.9 (0.55-1.02) mg/dL Est Cr Clr Drug Dosing 47.97 mL/min Estimated GFR (MDRD) > 60 (>60) mL/min BUN/Creatinine Ratio 11.1 L (14-18) Glucose 195 H (70-99) mg/dL Calcium 8.9 (8.5-10.1) mg/dL Total Bilirubin 1.6 H (0.2-1.0) mg/dL AST 26 (15-37) U/L ALT 41 (14-59) U/L Alkaline Phosphatase 107 (46-116) U/L Total Protein 7.2 (6.4-8.2) g/dl Albumin 4.5 (3.4-5.0) g/dl Globulin 2.7 gm/dL Albumin/Globulin Ratio 1.7 (1-2) Urine Color (Yellow) Urine Appearance (Clear) Urine pH (5.0-8.0) Ur Specific [place] (1.005-1.030) Urine Protein (Negative) Urine Glucose (UA) (Negative) Urine Ketones (Negative) Urine Occult Blood (Negative) Urine Nitrite (Negative) Urine Bilirubin (Negative) Urine Urobilinogen (0.2-1.0) Ur Leukocyte Esterase (Negative) Urine RBC (0-5) /hpf Urine WBC (0-5) /hpf Urine Bacteria (FEW) /hpf Urine Mucus (FEW) /hpf Influenza Type A RNA (NEGATIVE) Influenza Type B RNA (NEGATIVE) SARS-CoV-2 RNA ([place]) (NEGATIVE) Meds: Medications Generic Name Dose Route Start Last Admin Trade Name Yaritza PRN Reason Stop Dose Admin Sodium Chloride 1,000 mls @ 150 mls/hr 11/12/21 20:45 11/12/21 20:49 Normal Saline IV 150 mls/hr ASDIRECTED ALAN Administration Discontinued Medications Generic Name Dose Route Start Last Admin Trade Name Devonq PRN Reason Stop Dose Admin Diphenhydramine HCl 50 mg 11/13/21 01:12 11/13/21 01:28 Diphenhydramine 50 Mg/Ml Sdv IVPUSH 11/13/21 01:13 50 mg ONETIME ONE Administration Famotidine 40 mg 11/13/21 01:12 11/13/21 01:28 Famotidine 20 Mg/2 Ml Sdv IVPUSH 11/13/21 01:13 40 mg ONETIME ONE Administration Fentanyl 50 mcg 11/12/21 20:33 11/12/21 20:50 Fentanyl 100 Mcg/2 Ml Sdv IVPUSH 11/12/21 20:34 50 mcg ONETIME ONE Administration Levofloxacin 500 mg 11/13/21 01:14 11/13/21 01:28 Levofloxacin 500 Mg Tab PO 11/13/21 01:15 500 mg ONETIME ONE Administration Morphine Sulfate 4 mg 11/12/21 21:30 11/12/21 21:35 Morphine 4 Mg/Ml Syringe IVPUSH 11/12/21 21:31 4 mg ONETIME ONE Administration Morphine Sulfate 2 mg 11/12/21 22:52 11/12/21 22:58 Morphine 2 Mg/Ml Syringe IVPUSH 11/12/21 22:53 2 mg ONETIME ONE Administration Morphine Sulfate 2 mg 11/13/21 01:12 11/13/21 01:28 Morphine 2 Mg/Ml Syringe IVPUSH 11/13/21 01:13 2 mg ONETIME ONE Administration Ondansetron HCl 4 mg 11/12/21 20:33 11/12/21 20:50 Ondansetron 4 Mg/2 Ml Sdv IVPUSH 11/12/21 20:34 4 mg ONETIME ONE Administration Potassium Chloride 40 meq 11/12/21 22:50 11/12/21 22:58 Potassium Chloride 20 Meq Tab.Er PO 11/12/21 22:51 40 meq ONETIME ONE Administration - Re-Assessments/Exams Free Text/Narrative Re-Assessment/Exam: 11/12/21 23:12 CT shows a distal ureter stone right at the UVJ 4 mm. Case was discussed with Dr. Qing Henriquez who cannot accept the patient is seen is as no beds. But he would admit the patient which they cannot do and have the stone taken out either tonight or in the morning. The case was then discussed with Dr. Wagoner on-call urologist at [facility] in [place] who thinks the patient is safe on antibiotics however the patient is allergic to most antibiotics and see if the stone will pass follow-up with her regular physician or here in the emergency room exceeds 100. At this time are trying to determine if the patient is allergic to the fluoroquinolones. 11/13/21 03:44 Patient was given Levaquin 500 mg p.o. and is tolerated this before this she was given 40 mg of famotidine and 50 mg of Benadryl IV. Patient is feeling somewhat better she still having some discomfort. We will go and discharge her home with a prescription for Levaquin, hydrocodone, and Zofran. Departure - Departure Time of Disposition: 03:45 Disposition: Home, Self-Care 01 Clinical Impression: Kidney stone on left side - Discharge Information Referrals: PCP,Not In Area [Primary Care Provider] - Forms: ED Department Discharge Additional Instructions: Return to the emergency room with any questions problems or worsening symptoms. You have been started on Levaquin, this is an antibiotic. While taking this antibiotic I want to use an famotidine the generic name for Pepcid 1 twice daily and extend this for 5 days after you are done with the antibiotic. Also take Benadryl 25 mg 4 times a day while taking the antibiotic you can stop this 24 ho urs after finishing the antibiotic. Follow-up in the hospital clinic on Saturday or Saturday for recheck. The clinic phone number is [phone] call first thing Saturday morning for a appointment Sepsis Event Note (ED) - Focused Exam Vital Signs: Vital Signs Temp Pulse Resp BP Pulse Ox 11/12/21 20:20 36.1 C 87 20 137/116 H 100 - My Orders Last 24 Hours: My Active Orders 11/12/21 20:45 CULTURE URINE [MREF] Stat Sodium Chloride 0.9% [Normal Saline] 1,000 ml IV ASDIRECTED 11/12/21 20:53 Abdomen Pelvis wo Cont [CT] Stat - Assessment/Plan Last 24 Hours: My Active Orders 11/12/21 20:45 CULTURE URINE [MREF] Stat Sodium Chloride 0.9% [Normal Saline] 1,000 ml IV ASDIRECTED 11/12/21 20:53 Abdomen Pelvis wo Cont [CT] Stat
[2021-11-12 21:11] LABS: CORONAVIRUS COVID-19 NAA NEGATIVE (NEGATIVE)
[2021-11-12] MEDS ORDERED: Morphine 4 MG/ML Syringe IVPUSH ONE (21:30)
[2021-11-12] MEDS ORDERED: Potassium Chloride 20 MEQ Tab.ER PO ONE (22:50)
[2021-11-12] MEDS ORDERED: Morphine 2 MG/ML SYRINGE IVPUSH ONE (22:52)
[2021-11-13] MEDS ORDERED: Famotidine 20 MG/2 ML SDV IVPUSH ONE (01:12)
[2021-11-13] MEDS ORDERED: diphenhydrAMINE 50 MG/ML SDV IVPUSH ONE (01:12)
[2021-11-13] MEDS ORDERED: Morphine 2 MG/ML SYRINGE IVPUSH ONE (01:12)
[2021-11-13] MEDS ORDERED: Levofloxacin 500 MG Tab PO ONE (01:14)
--- NOTE | 2021-11-13 07:23 | CT ---
CT abdomen and pelvis Technique: Multiple axial sections were obtained from above the dome of the diaphragm inferiorly through the pubic symphysis. Intravenous and oral contrast were not utilized. Study has been performed as a ureteral stone protocol. Comparison: Prior CT abdomen and pelvis exam of 03/18/18. Findings: 3.7 mm calculus is identified within the distal left ureter which occurs close to the UVJ. This causes dilatation of the left ureter and left kidney collecting system. Inflammatory change is also noted around the left kidney compatible with recent obstruction. Left kidney shows a small nonobstructing stone measuring less than 3 mm. Right kidney shows two nonobstructing calculi with largest measuring 4.7 mm. Visualized lung bases show nothing acute. Fluid is seen within the distal esophagus presumably due to reflux. Structure is seen off the duodenum which is to be felt compatible with a duodenal diverticulum measuring around 2.4 cm. Liver shows no focal parenchymal abnormality. Spleen appears within normal limits. Calcified gallstones are seen within the gallbladder. Pancreas shows no discrete abnormality. Abdominal aorta shows atherosclerotic calcification which continues into the iliac vessels. No aneurysm is seen. No retroperitoneal adenopathy or mesenteric abnormalities are seen. No pelvic mass or adenopathy is seen. Bone window settings were reviewed which show degenerative change throughout the spine. Degenerative change also noted within both hips, worse on the right side. No acute osseous finding is seen. Impression: 1. Obstructing calculus within the distal left ureter close to the UVJ measuring 3.7 mm. This causes dilatation of the left ureter as well as left kidney collecting system and inflammatory change around the left kidney. 2. Small nonobstructing stone within the left kidney and two nonobstructing stones within the right kidney. 3. Calcified gallstones are seen. 4. Fluid within the distal esophagus suspicious for reflux. 5. Other chronic findings as noted above. Diagnostic code #3 I agree with preliminary report from [facility], finalized on 11/12/21, 10:32 PM [employer]EM[employer] SUPER[employer], code 1
== END 2021-11-13 04:12 | disposition home or self-care (01) ==
LOC: JD.ED 20:08
DX: N20.2 Calculus of kidney with calculus of ureter (principal); I10 Essential (primary) hypertension; E11.9 Type 2 diabetes mellitus without complications; Z88.8 Allergy status to other drugs, medicaments and biological substances; Z88.6 Allergy status to analgesic agent; Z91.048 Other nonmedicinal substance allergy status; Z88.0 Allergy status to penicillin; Z88.2 Allergy status to sulfonamides; Z20.822 Contact with and (suspected) exposure to COVID-19
CPT/HCPCS: 0240U; 36415; 74176; 80053; 81001; 85007; 85027; 87086; 96374; 96375; 96376; 99284; A9270; J1200; J2270; J2405; J3010; J3490; J7030

== ENCOUNTER 2024-09-02 03:43 | Emergency (ER) | payer MEDICARE, OTHER ==
[2024-09-02] MEDS: Metoclopramide 10 MG/2 ML SDV IVPUSH ONE ×2 (04:24→07:46)
[2024-09-02] MEDS: HYDROmorphone 1 MG/ML Syringe IVPUSH ONE (04:24)
[2024-09-02] MEDS: Sodium Chloride 0.9% 1,000 ML IV SCH (04:25)
[2024-09-02] MEDS ORDERED: Sodium Chloride 0.9% 1,000 ML IV SCH (04:30)
[2024-09-02] MEDS: fentaNYL 100 MCG/2 ML SDV IVPUSH ONE ×4 (05:23→11:06)
[2024-09-02] MEDS: HYDROmorphone 0.5 MG/0.5 ML Syringe IVPUSH ONE (06:48)
[2024-09-02 06:52] LABS: APPEARANCE,URINE CLEAR (Clear); BILIRUBIN,URINE NEGATIVE (Negative); COLOR,URINE YELLOW (Yellow); GLUCOSE,URINE 2+ (Negative); KETONES,URINE 2+ (Negative); LEUKOCYTE ESTERASE,URINE TRACE (Negative); NITRITE,URINE POSITIVE (Negative); OCCULT BLOOD,URINE TRACE-LYSED (Negative); PROTEIN,URINE 2+ (Negative); UROBILINOGEN,URINE 0.2 (0.2-1.0)
[2024-09-02] MEDS: Acetaminophen/oxyCODONE 325-5 MG Tab PO ONE (06:55)
[2024-09-02 07:12] LABS: BACTERIA,URINE MODERATE /hpf (FEW); EPITHELIAL CELLS,URINE 0-5 /hpf (0-5); MUCUS,URINE FEW /hpf (FEW); RBC,URINE 0-5 /hpf (0-5)
[2024-09-02 07:21] LABS: BASOPHILS ABSOLUTE AUTO 0.1 K/mm3 (0.0-0.2); BASOPHILS PERCENT AUTO 0.4 % (0.0-1.0); EOSINOPHILS ABSOLUTE AUTO 0.2 K/mm3 (0.0-0.4); EOSINOPHILS PERCENT AUTO 1.4 % (0.0-6.0); HEMATOCRIT 48.2 % (37.0-47.0); HEMOGLOBIN 16.1 gm/dl (12.0-16.0); IMMATURE GRAN ABSOLUTE AUTO 0.06 K/mm3 (0.00-0.05); IMMATURE GRAN PERCENT AUTO 0.4 % (0.0-0.4); LYMPHOCYTES ABSOLUTE AUTO 1.2 K/mm3 (1.0-4.8); LYMPHOCYTES PERCENT AUTO 7.8 % (24.0-44.0); MEAN CORPUSCULAR HEMOGLOBIN 27.7 pg (28.0-32.0); MEAN CORPUSCULAR HGB CONC 33.4 g/dl (32.0-36.0); MEAN PLATELET VOLUME 9.4 fl (9.4-12.3); MONOCYTES ABSOLUTE AUTO 0.4 K/mm3 (0.0-0.8); MONOCYTES PERCENT AUTO 2.7 % (0.0-8.0); NEUTROPHILS ABSOLUTE AUTO 13.4 K/mm3 (1.8-7.7); NEUTROPHILS PERCENT AUTO 87.3 % (41.0-71.0); PLATELET COUNT,PLT 214 K/mm3 (150-400); RED BLOOD CELL COUNT 5.81 M/mm3 (4.10-5.30); WHITE BLOOD CELL COUNT,WBC 15.35 K/mm3 (3.9-11.3)
[2024-09-02 07:37] LABS: A/G RATIO 1.4 (1-2); ALBUMIN 4.6 g/dl (3.4-5.0); ANION GAP 15.9 (5-15); BUN/CREATININE RATIO 25.6 (14-18); CALCIUM 10.2 mg/dL (8.5-10.1); CREATININE 0.9 mg/dL (0.55-1.02); EST CRCL DRUG DOSING (CG) 43.89 mL/min; POTASSIUM,K 3.9 mEq/L (3.5-5.1); PROTEIN TOTAL,TP 7.9 g/dl (6.4-8.2)
[2024-09-02] MEDS: diphenhydrAMINE 50 MG/ML SDV IVPUSH ONE (07:45)
[2024-09-02] MEDS: Levofloxacin/Dextrose 5%-Water 750 MG in Premix Bag 1 BAG IV ONE (07:46)
[2024-09-02 09:05] LABS: LACTIC ACID 6.6 mmol/L (0.4-2.0)
[2024-09-02] MEDS: Sodium Chloride 0.9% 500 ML IV ONE ×2 (09:39→10:46)
[2024-09-02] MEDS: Ondansetron 4 MG/2 ML SDV IVPUSH ONE (09:50)
[2024-09-02 20:22] VITALS: BP 186/62; PULSE 107
== END 2024-09-02 11:00 | disposition left against medical advice (07) ==
LOC: JD.ED 03:43
DX: N20.1 Calculus of ureter (principal); N23 Unspecified renal colic; N39.0 Urinary tract infection, site not specified; D72.829 Elevated white blood cell count, unspecified; E11.65 Type 2 diabetes mellitus with hyperglycemia; E78.00 Pure hypercholesterolemia, unspecified; I10 Essential (primary) hypertension; Z79.899 Other long term (current) drug therapy; Z79.84 Long term (current) use of oral hypoglycemic drugs; Z90.710 Acquired absence of both cervix and uterus; Z88.8 Allergy status to other drugs, medicaments and biological substances; Z88.0 Allergy status to penicillin; Z88.1 Allergy status to other antibiotic agents; Z88.2 Allergy status to sulfonamides; Z88.6 Allergy status to analgesic agent; Z91.041 Radiographic dye allergy status
CPT/HCPCS: 36415; 74176; 80053; 81001; 83605; 85025; 86140; 87040; 87086; 87088; 87186; 96361; 96365; 96375; 96376; 99285; J1171; J1200; J1956; J2405; J2765; J3010; J7030; 99284